=== PATIENT | female | born 1960 | race American Indian/Alaskan Native ===

== ENCOUNTER 2017-05-11 09:04 | Emergency (ER) | payer MEDICARE ==
[2017-05-11 09:46] LABS: Hematocrit 40.3 % (30.3-42.9); Hemoglobin 13.4 gm/dl (10.1-14.3); Mean Corpuscular HGB Conc 33 % (30-34); Mean Corpuscular Hemoglobin 30 pg (28-32); Mean Corpuscular Volume 91 fl (79-97); Platelet Count 126 K/mm3 (140-440); Red Blood Count 4.44 M/mm3 (3.65-5.03)
[2017-05-11 10:06] LABS: Anion Gap 16 mmol/L; BUN/Creatinine Ratio 24.28; Blood Urea Nitrogen 17 mg/dL (7-17); Carbon Dioxide 27 mmol/L (22-30); Glucose 122 mg/dL (65-100); Potassium 3.6 mmol/L (3.6-5.0); Sodium 142 mmol/L (137-145)
[2017-05-11 10:23] LABS: INR 0.92 (0.87-1.13)
[2017-05-11 10:24] LABS: Partial Thromboplastin Time 30.6 Sec. (24.2-36.6)
--- NOTE | 2017-05-11 10:39 | Cat Scan Report ---
CT NECK WITHOUT CONTRAST INDICATION: Neck pain, foreign body sensation. COMPARISON: None similar. FINDINGS: Noncontrast axial, sagittal and coronal CT reconstructions through the neck demonstrate patent airway, though subtle mucosal fold thickening about the level of the piriform sinuses not excluded, axial series 2, images 95-102. Normal parapharyngeal fat pads. Grossly normal prevertebral soft tissues. Few small cervical lymph nodes noted measuring up to 1.2 cm along the jugular chain. Grossly unremarkable imaged salivary glands and the thyroid. Biapical scarring/pleural thickening with mild traction bronchiectasis/cyst formation measuring up to 1 cm in the left upper lobe, axial image 171. Streak artifact from few radiopaque dental material. Normal imaged intracranial appearance and the eye globes. Clear paranasal sinuses and mastoid air cells. Mild multilevel cervical spine degenerative changes, including spurring and disc narrowing. Approximately 4 mm right maxillary incisor periapical cyst. CONCLUSION: 1. No radiopaque foreign body identified in the neck, though mild mucosal fold thickening about the piriform sinuses not excluded and may be further evaluated under direct visualization, if warranted. 2. Various other findings, as above. Thank you for the opportunity to participate in this patient's care.
[2017-05-11 10:49] LABS: Calcium 9.2 mg/dL (8.4-10.2)
[2017-05-11] MEDS ORDERED: ZOFRAN ODT ONE (20:58)
[2017-05-11] MEDS ORDERED: ZOFRAN ODT PO ONE (21:02)
[2017-05-11] MEDS ORDERED: DILAUDID IV ONE (21:51)
[2017-05-11] MEDS ORDERED: ZOFRAN IV ONE (21:51)
--- NOTE | 2017-05-11 21:55 | Emergency Department Report ---
ED Headache HPI - General Chief Complaint: Headache Stated Complaint: HBP/MIGRAINE /PAIN WHEN SWALLOW Time Seen by Provider: 05/11/17 21:27 Source: patient Exam Limitations: no limitations - History of Present Illness Initial Comments: 57 year old female with a past medical history of arthritis, hypertension, scoliosis, and currently on Coumadin therapy for PE diagnosed 3 years ago presents to the hospital with complains of headache 4 days. Headache was gradual onset and at the frontal part of her head and left side and described as throbbing. Today pain started to radiate to the left side of the neck and patient developed pain with swallowing. Pain currently 8/10 in intensity. Pain to left side of neck is worse with movement and palpation. Headache and neck pain temporarily improved with Motrin but never completely goes away since onset 4 days ago. Nausea and vomiting times one today. No blurred vision, focal weakness, numbness, or trauma. Patient is compliant with her Coumadin. Denies history of headache syndrome. Allergies/Adverse Reactions: Allergies codeine Allergy (Verified 05/11/17 09:27) Itching surgical tape Allergy (Uncoded 05/11/17 09:27) Unknown Home Medications: Ambulatory Orders Amoxicillin/K Clav Tab [Augmentin 875 mg] 1 tab PO Q12HR #10 tab 05/12/17 Prednisone [predniSONE 10 mg (6-Day Pack, 21 Tabs)] 10 mg PO .TAPER #1 tab.ds.pk 05/12/17 diphenhydrAMINE [Benadryl CAP] 25 mg PO Q6HR PRN #30 capsule 05/12/17 oxyCODONE /ACETAMINOPHEN [Percocet 5/325] 1 tab PO Q6HR PRN #20 tablet 05/12/17 ED Review of Systems ROS: Stated complaint: HBP/MIGRAINE /PAIN WHEN SWALLOW Other details as noted in HPI Comment: All other systems reviewed and negative Other: Constitutional: No fevers chills Eyes: No eye pain visual changes or discharge ENT: No ear pain or throat pain Neck: As per HPI Respiratory: Denies cough wheezing shortness of breath Cardiovascular: Denies chest pain, palpitations, syncope GI: Denies abdominal pain, nausea, vomiting, diarrhea : Denies dysuria Musculoskeletal: Denies back pain Skin: Denies rash, lesions, erythema Neurologic: As per HPI Psychiatric: Denies suicidal ideation, hallucinations ED Past Medical Hx - Past Medical History Previous Medical History?: Yes Hx Hypertension: Yes Hx Pulmonary Embolism: Yes (warfarin therapy) Hx Arthritis: Yes Additional medical history: scoliosis, low potassium, high cholesterol - Surgical History Past Surgical History?: Yes Additional Surgical History: back surgery - Social History Smoking Status: Never Smoker Substance Use Type: Alcohol - Medications Home Medications: Home Medications Medication Instructions Recorded Confirmed Last Taken Type Amoxicillin/K Clav Tab [Augmentin 1 tab PO Q12HR #10 tab 05/12/17 Unknown Rx 875 mg] Prednisone [predniSONE 10 mg 10 mg PO .TAPER #1 tab.ds.pk 05/12/17 Unknown Rx (6-Day Pack, 21 Tabs)] diphenhydrAMINE [Benadryl CAP] 25 mg PO Q6HR PRN #30 capsule 05/12/17 Unknown Rx oxyCODONE /ACETAMINOPHEN [Percocet 1 tab PO Q6HR PRN #20 tablet 05/12/17 Unknown Rx 5/325] ED Physical Exam - General Limitations: No Limitations - Other Other exam information: General: No limitations, patient is alert in no acute distress Head exam: Atraumatic, normocephalic Eyes exam: Normal appearance, pupils equal reactive to light, extraocular movements intact ENT: Moist mucous membrane, normal oropharynx Neck exam: Normal inspection, full range of motion, no meningismus, tenderness to left sternocleidomastoid muscles Respiratory exam: Clear to auscultation bilateral, no wheezes, rales, crackles Cardiovascular: Normal rate and rhythm, normal heart sounds Abdomen: Soft, nondistended, and nontender, with normal bowel sounds, no rebound, or guarding Extremity: Full range of motion normal inspection no deformity Back: Normal Inspection, full range of motion, no tenderness Neurologic: Alert, oriented x3, cranial nerves intact, no motor or sensory deficit Psychiatric: normal affect, normal mood Skin: Warm, dry, intact ED Course Vital Signs 05/11/17 05/11/17 05/11/17 09:19 14:48 20:08 Temperature 98.7 F 98.0 F Pulse Rate 80 79 91 H Respiratory 18 14 Rate Blood Pressure 159/107 Blood Pressure [Left] Blood Pressure 169/111 172/99 [Right] O2 Sat by Pulse 99 100 Oximetry 05/11/17 05/11/17 05/11/17 21:08 21:10 21:20 Temperature 97.9 F Pulse Rate 78 82 Respiratory 20 20 Rate Blood Pressure 148/88 Blood Pressure 148/88 [Left] Blood Pressure [Right] O2 Sat by Pulse 96 99 100 Oximetry 05/11/17 05/11/17 05/11/17 21:21 21:31 21:41 Temperature Pulse Rate 87 87 80 Respiratory 23 21 19 Rate Blood Pressure 156/86 150/87 150/87 Blood Pressure [Left] Blood Pressure [Right] O2 Sat by Pulse 98 99 100 Oximetry 05/11/17 05/11/17 05/11/17 21:45 21:51 22:03 Temperature Pulse Rate 77 Respiratory 21 20 Rate Blood Pressure 154/91 154/91 Blood Pressure [Left] Blood Pressure [Right] O2 Sat by Pulse 97 Oximetry 05/11/17 05/11/17 05/12/17 23:49 23:51 00:00 Temperature Pulse Rate 85 82 Respiratory 23 16 Rate Blood Pressure 156/86 147/98 159/95 Blood Pressure [Left] Blood Pressure [Right] O2 Sat by Pulse 92 93 Oximetry 05/12/17 05/12/17 05/12/17 00:11 00:21 00:30 Temperature Pulse Rate 79 82 82 Respiratory 12 14 18 Rate Blood Pressure 159/95 168/101 146/83 Blood Pressure [Left] Blood Pressure [Right] O2 Sat by Pulse 95 91 95 Oximetry 05/12/17 05/12/17 05/12/17 00:41 00:51 01:00 Temperature Pulse Rate 90 82 84 Respiratory 17 15 16 Rate Blood Pressure 146/83 143/89 140/84 Blood Pressure [Left] Blood Pressure [Right] O2 Sat by Pulse 96 94 Oximetry 05/12/17 05/12/17 05/12/17 01:11 01:21 01:30 Temperature Pulse Rate 86 86 84 Respiratory 14 13 16 Rate Blood Pressure 140/84 139/85 141/82 Blood Pressure [Left] Blood Pressure [Right] O2 Sat by Pulse 94 94 96 Oximetry 05/12/17 05/12/17 05/12/17 01:41 01:51 02:00 Temperature Pulse Rate 97 H 81 78 Respiratory 15 13 12 Rate Blood Pressure 141/82 136/90 129/81 Blood Pressure [Left] Blood Pressure [Right] O2 Sat by Pulse 98 95 95 Oximetry 05/12/17 05/12/17 05/12/17 02:11 02:21 02:30 Temperature Pulse Rate 80 78 76 Respiratory 14 13 13 Rate Blood Pressure 129/81 120/81 125/72 Blood Pressure [Left] Blood Pressure [Right] O2 Sat by Pulse 95 96 97 Oximetry 05/12/17 05/12/17 05/12/17 02:41 02:51 03:00 Temperature Pulse Rate 79 79 78 Respiratory 15 13 15 Rate Blood Pressure 125/72 130/79 126/76 Blood Pressure [Left] Blood Pressure [Right] O2 Sat by Pulse 98 94 95 Oximetry - Reevaluation(s) Reevaluation #1: 05/12/17 01:35 PT treated with Zofran, and Dilaudid 0.5 mg with improvement in pain. During ED stay pain gradually returning patient received additional Dilaudid 0.5 mg, Toradol, and Lexapro with further improvement Reevaluation #2: 05/12/17 01:42 Just prior to discharge patient developed a erythematous pruritic rash after receiving second rounds of med. No airway symptoms reported. Benadryl Solu- Medrol ordered. Patient will be observed. Reevaluation #3: 05/12/17 03:59 Patient rested after receiving Benadryl and allergy symptoms have completely resolved. - Consultations Consultation #1: 05/12/17 Case briefly discussed with neurologist Dr. Arrington during evaluation ED Medical Decision Making - Lab Data Result diagrams: 05/11/17 09:35 05/11/17 09:35 Lab Results 05/11/17 05/11/17 05/11/17 Range/Units 09:35 09:35 09:35 WBC 6.0 (4.5-11.0) K/mm3 RBC 4.44 (3.65-5.03) M/mm3 Hgb 13.4 (10.1-14.3) gm/dl Hct 40.3 (30.3-42.9) % MCV 91 (79-97) fl MCH 30 (28-32) pg MCHC 33 (30-34) % RDW 13.0 L (13.2-15.2) % Plt Count 126 L (140-440) K/mm3 PT 12.3 (12.2-14.9) Sec. INR 0.92 (0.87-1.13) APTT 30.6 (24.2-36.6) Sec. Sodium 142 (137-145) mmol/L Potassium 3.6 (3.6-5.0) mmol/L Chloride 103.0 (98-107) mmol/L Carbon Dioxide 27 (22-30) mmol/L Anion Gap 16 mmol/L BUN 17 (7-17) mg/dL Creatinine 0.7 (0.7-1.2) mg/dL Estimated GFR > 60 ml/min BUN/Creatinine Ratio 24.28 % Glucose 122 H (65-100) mg/dL Calcium 9.2 (8.4-10.2) mg/dL - EKG Data -: EKG Interpreted by Me (sinus rhythm rate 78 no stemi or t inver) - Radiology Data Radiology results: report reviewed CT neck without contrast: No radiopaque foreign body. Mild mucosal fold thickening about the. From a sinus not excluded CT head noncontrast: Negative no acute process CTA head: Right vertebral and anterior cerebral artery atrophy slightly hypoplastic and may be congenital no other evidence of intracranial vascular abnormality. No aneurysm CTA neck: No evidence of significant stenosis of the internal carotid arteries. Tortuous and possible mild aneurysm dilatation at the bulb/proximal ICA bilaterally. Right vertebral artery slightly hypoplastic may be congenital. Similar findings in the right anterior cerebral artery. Minimal sinusitis left frontal. Periapical Andry about the proximal right tooth #26. Mild degenerative changes of the cervical spine - Medical Decision Making Patient was discharged home on Percocet and she states no previous allergy. I' m hesitant to give a prescription for Flexeril is unsure patient had allergy to Toradol or Flexeril. Patient states she has tolerated ibuprofen in the past. Patient informed us of therapeutic INR and to follow-up with her physician. - Differential Diagnosis SAH, migraine, sinusitis, ICH, tension headache Critical Care Time: No Critical care attestation.: If time is entered above; I have spent that time in minutes in the direct care of this critically ill patient, excluding procedure time. ED Disposition Clinical Impression: Headache, Sternocleidomastoid muscle tenderness, HTN (hypertension), Subtherapeutic international normalized ratio (INR), Drug allergy, Frontal sinusitis Disposition: DC-01 TO HOME OR SELFCARE Is pt being admited?: No Does the pt Need Aspirin: No Condition: Stable Instructions: Acute Headache (ED), Hypertension (ED), Anaphylaxis (ED), Sinusitis (ED) Additional Instructions: Take medication as needed for pain. Your INR is low today and needs to be reevaluated by your physician for possible Coumadin adjustment. Follow-up with your doctor and return if symptoms worsen. Follow-up with the neurologist provided as well. Prednisone and Benadryl were prescribed for several days due to your allergic reaction to one of the medications you received in the ED. You were also cover with antibiotics for mild sinusitis and a right-sided dental infection (tooth #26) identified on CT Prescriptions: Amoxicillin/K Clav Tab [Augmentin 875 mg] 1 tab PO Q12HR #10 tab diphenhydrAMINE [Benadryl CAP] 25 mg PO Q6HR PRN #30 capsule PRN Reason: Allergic Reaction oxyCODONE /ACETAMINOPHEN [Percocet 5/325] 1 tab PO Q6HR PRN #20 tablet PRN Reason: Pain Prednisone [predniSONE 10 mg (6-Day Pack, 21 Tabs)] 10 mg PO .TAPER #1 tab.ds.pk Referrals: RACQUEL GROVER MD [Staff Physician] - 3-5 Days PRIMARY CARE, [Primary Care Provider] - 3-5 Days your, dentist [Other] - 3-5 Days Time of Disposition: 04:01
--- NOTE | 2017-05-11 22:53 | Cat Scan Report ---
FINAL REPORT EXAM: CT HEAD/BRAIN WO CON HISTORY: headache, left neck pain TECHNIQUE: Standard unenhanced CT of the head at 5.0 millimeter axial increments. PRIORS: None. FINDINGS: The ventricular system is normal in size and configuration. There is no evidence for parenchymal volume loss. There is no evidence for mass lesion, mass effect, midline shift, acute intracranial hemorrhage, or acute ischemia/ infarction. No evidence for acute skull fracture is seen. No abnormality in the overlying scalp soft tissues is seen. Visualized paranasal sinuses are clear. IMPRESSION: Negative CT of the head. No acute intracranial process noted. No change.
--- NOTE | 2017-05-11 23:21 | Cat Scan Report ---
FINAL REPORT PROCEDURE: CT ANGIO HEAD TECHNIQUE: Computerized tomographic angiography of the head was performed after the IV injection of iodinated nonionic contrast including image processing. The image data was postprocessed using 2-dimensional multiplanar reformatted (MPR) and 3-dimensional (MIP and/or volume rendered) techniques. HISTORY: Headache. Neck pain. COMPARISON: CT scan dated 05/11/2017. FINDINGS: Cerebrum: No evidence of hemorrhage, acute ischemia or mass. Cerebellum: No evidence of hemorrhage, acute ischemia or mass. Subarachnoid spaces and ventricles: Normal. Intracranial vessels: Carotid siphon: Normal. Anterior cerebral: Right anterior cerebral artery slightly hypoplastic. Middle cerebral: Normal. Posterior cerebral:Normal. Vertebral arteries including basilar: Right vertebral artery slightly hypoplastic. Basilar artery tortuous. Aneurysms: None. Dural sinuses: Normal. Other: Minimal right frontal sinusitis. IMPRESSION: Right vertebral and anterior cerebral artery artery slightly hypoplastic, may be congenital. No other CT evidence of intracranial vascular abnormality.
--- NOTE | 2017-05-11 23:38 | Cat Scan Report ---
FINAL REPORT PROCEDURE: CT ANGIO NECK TECHNIQUE: Computerized tomographic angiography of the neck was performed after the IV injection of iodinated nonionic contrast including image processing. The image data was postprocessed using 2-dimensional multiplanar reformatted (MPR) and 3-dimensional (MIP and/or volume rendered) techniques. HISTORY: Headache. Neck pain. COMPARISON: CT and CTA of the brain dated 05/11/2017. Note: Assessment of carotid artery stenosis is based on measurement of the distal internal carotid artery diameter as the denominator for stenosis calculations and the [place] Symptomatic Carotid Endarterectomy Trial (NASCET) stenosis criteria . CPT 3100F FINDINGS: Sinuses: Normal . Non vascular cervical structures: No significant abnormality . Aortic arch: Normal . Right carotid artery: Normal. Tortuosity and possible mild aneurysmal dilation at the bulb/proximal ICA. Left carotid artery: Normal. Tortuosity and possibly mild aneurysmal dilation at the bulb/proximal ICA. Vertebral arteries: Hypoplastic right vertebral artery. Intracranial arteries: Slightly hypoplastic right anterior cerebral artery. Other: Biapical scarring. Ground-glass opacities in the lung. 8 millimeter left upper lobe cyst. Minimal left frontal sinusitis. Mild degenerative changes of the spine. Periapical lucency about approximately the right 26 tooth. IMPRESSION: No CT evidence of significant stenosis of internal carotid arteries. Tortuosity and possible mild aneurysmal dilation at the bulb/proximal ICA. Right vertebral artery slightly hypoplastic, may be congenital. Similar finding in the right anterior cerebral artery. Ground-glass opacities in the lung apices. Minimal sinusitis. Periapical lucency about approximately the right 26 tooth, consider dental consultation.
[2017-05-12] MEDS ORDERED: DILAUDID IV ONE (00:10)
[2017-05-12] MEDS ORDERED: FLEXERIL PO ONE (00:11)
[2017-05-12] MEDS ORDERED: TORADOL IV ONE (00:11)
[2017-05-12] MEDS ORDERED: BENADRYL IV ONE (01:41)
[2017-05-12 03:59] VITALS: BP 127/87
== END 2017-05-12 04:17 | disposition home or self-care (01) ==
LOC: ED 09:04
DX: R51 Headache (principal); I10 Essential (primary) hypertension; J32.1 Chronic frontal sinusitis; R79.1 Abnormal coagulation profile; M79.1 Myalgia; E78.00 Pure hypercholesterolemia, unspecified; M19.90 Unspecified osteoarthritis, unspecified site; I26.99 Other pulmonary embolism without acute cor pulmonale
CPT/HCPCS: 36415; 70450; 70490; 70496; 70498; 80048; 85027; 85610; 85730; 93005; 93010; 96374; 96375; 96376; 99284; J1170; J1200; J1885; J2405; J2930; Q9967; Q0162